=== PATIENT | male | born 1985 | race Hispanic/Latino ===

== ENCOUNTER 2020-01-22 09:24 | Emergency (ER) | payer SELFPAY ==
--- NOTE | 2020-01-22 10:22 | RAD REPORT ---
EXAM DESCRIPTION: CT - Head Brain Wo Cont - 01/22/2020 9:58 am CLINICAL HISTORY: Numbness/Macdonald's palsy COMPARISON: 2015 TECHNIQUE: Computed axial tomography of the head was obtained. IV contrast was not requested. All CT scans are performed using dose optimization technique as appropriate and may include automated exposure control or mA/KV adjustment according to patient size. FINDINGS: An intracranial bleed is not seen . The ventricles are normal in caliber. No extra-axial fluid collection is noted. Fluid within the sinuses/ mastoids is not seen. IMPRESSION: No acute intracranial abnormality is seen. If patient's symptoms persist MRI of the bra in would be recommended.
--- NOTE | 2020-01-22 10:51 | EDPHYS ---
Physician Documentation [facility] Name: Manuel Winn Age: 34 yrs Sex: Male : 1985 Arrival Date: 01/22/2020 Time: 09:25 Bed 14 Private MD: ED Physician Booker Trinidad HPI: 01/22 10:37 This 34 yrs old Male presents to ER via Ambulatory with complaints of Right pm1 Facial Droop. 10:37 The patient presents to the emergency department with right sided facial droop. Onset: pm1 The symptoms/episode began/occurred yesterday, at 14:00. Context: occurred at home, occurred while the patient was getting up from bed. Associated signs and symptoms: Pertinent negatives: altered mental status, dizziness, fever, headache, nausea, weakness. Severity of symptoms: in the emergency department the symptoms are unchanged Pain is currently a 0 / 10. 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 The patient has not recently seen a physician. 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 - Coronavirus screen:: The patient has NOT traveled to [place] in the past 14 days. The patient has NOT had contact with known/suspected case of Coronavirus? Proceed with normal triage procedures. - Social history:: Smoking status: Patient denies any tobacco usage or history of. - Ebola Screening: : No symptoms or risks identified at this time. ROS: 10:37 Constitutional: Negative for fever, chills, and weight loss. pm1 10:37 ENT: Negative for injury, pain, and discharge, Neck: Negative for injury, pain, and swelling, Cardiovascular: Negative for chest pain, palpitations, and edema, Respiratory: Negative for shortness of breath, cough, wheezing, and pleuritic chest pain, Abdomen/GI: Negative for abdominal pain, nausea, vomiting, diarrhea, and constipation, Back: Negative for injury and pain, MS/Extremity: Negative for injury and deformity, Skin: Negative for injury, rash, and discoloration. 10:37 Eyes: Positive for poor eyelid closure left side, Negative for blurry vision, discharge, pain, vision loss, visual disturbance. 10:37 Neuro: Positive for weakness, of the left side of head, Negative for altered mental status, dizziness, numbness, tingling. Exam: 10:37 Constitutional: This is a well developed, well nourished patient who is awake, alert, pm1 and in no acute distress. Head/Face: Normocephalic, atraumatic. 10:37 ENT: Nares patent. No nasal discharge, no septal abnormalities noted. Tympanic membranes are normal and external auditory canals are clear. Oropharynx with no redness, swelling, or masses, exudates, or evidence of obstruction, uvula midline. Mucous membranes moist. Neck: Trachea midline, no thyromegaly or masses palpated, and no cervical lymphadenopathy. Supple, full range of motion without nuchal rigidity, or vertebral point tenderness. No Meningismus. Chest/axilla: Normal chest wall appearance and motion. Nontender with no deformity. No lesions are appreciated. Cardiovascular: Regular rate and rhythm with a normal S1 and S2. No gallops, murmurs, or rubs. Normal PMI, no JVD. No pulse deficits. Respiratory: Lungs have equal breath sounds bilaterally, clear to auscultation and percussion. No rales, rhonchi or wheezes noted. No increased work of breathing, no retractions or nasal flaring. Abdomen/GI: Soft, non-tender, with normal bowel sounds. No distension or tympany. No guarding or rebound. No evidence of tenderness throughout. Back: No spinal tenderness. No costovertebral tenderness. Full range of motion. Skin: Warm, dry with normal turgor. Normal color with no rashes, no lesions, and no evidence of cellulitis. MS/ Extremity: Pulses equal, no cyanosis. Neurovascular intact. Full, normal range of motion. 10:37 Eyes: Periorbital structures: appear normal, Pupils: no acute changes, Extraocular movements: no acute changes, Conjunctiva: normal, Lids and lashes: poor eyelid closure left side. Examination of the other eye reveals no obvious gross abnormality. 10:37 Neuro: Orientation: is normal, Mentation: is normal, Cranial nerves: flattening of forehead and nasolabial fold on the left side; when patient raises eyebrows, forehead remains flat; when patient smiles, distortion and lateralization to the right side, Cerebellar function: normal finger to nose testing, Motor: is normal, moves all fours, strength is normal, strength is 5/5 in all extremities, Sensation: is normal, no obvious gross deficits, Gait: is steady, at a normal pace, without difficulty. Vital Signs: 09:34 BP 198 / 115; Pulse 100; Resp 16; Temp 98.2; Pulse Ox 100% on R/A; Weight 154.22 kg; hb Height 6 ft. 1 in. (185.42 cm); Pain 0/10; 10:39 BP 204 / 113; Pulse 98; Resp 20; Temp 98.4; Pulse Ox 100% on R/A; Pain 5/10; em1 11:10 BP 187 / 101; Pulse 97; Resp 18; Temp 98.0; Pulse Ox 99% on R/A; ph 09:34 Body Mass Index 44.86 (154.22 kg, 185.42 cm) hb NIH Stroke Scale Scores: 10:45 NIHSS Score: 2 ph MDM: 10:37 Patient medically screened. pm1 10:49 Data reviewed: vital signs. Data interpreted: Pulse oximetry: on room air is 100 %. pm1 Interpretation: normal. Counseling: I had a detailed discussion with the patient and/or guardian regarding: the historical points, exam findings, and any diagnostic results supporting the discharge/admit diagnosis, the need for outpatient follow up, a neurologist, to return to the emergency department if symptoms worsen or persist or if there are any questions or concerns that arise at home. 01/22 09:37 Order name: Head Brain Wo Cont CT; Complete Time: 10:37 hb Administered Medications: 11:00 Drug: Decadron 10 mg Route: IM; Site: right deltoid; ph 11:11 Follow up: Response: No adverse reaction ph Disposition: 13:00 Co-signature as Attending Physician, Booker Trinidad MD I agree with the assessment and kdr plan of care. Disposition: 01/22/20 10:50 Discharged to Home. Impression: Macdonald's palsy. - Condition is Stable. - Discharge Instructions: Macdonald Palsy, Adult. - Prescriptions for prednisone 10 mg Oral tablet - take 1 tablet by ORAL route once daily for 10 days Take 6 tablets once daily for 5 days, then take 4 tablets once daily for 2 days, then take 2 tablets once daily for 2 days, then take 1 tablet once daily for 1 day. Ignore "take 1 tablet by ORAL route once daily for 10 days"; 43 tablet. Valtrex 1 g Oral Tablet - take 1 tablet by ORAL route every 8 hours for 5 days; 15 tablet. - Family Work Release, Medication Reconciliation Form, Thank You Letter, Antibiotic Education, Prescription Opioid Use form. - Follow up: Emergency Department; When: As needed; Reason: Worsening of condition. Follow up: Rahul Saunders MD; When: 2 - 3 days; Reason: Recheck today's complaints, Continuance of care, Re-evaluation by your physician. - Problem is new. - Symptoms have improved. NIH Stroke Scale - NIH Stroke Score Date: 01/22/2020 Time: 10:45 Total Score = 2 1a. Level of Consciousness (LOC) - 0(Alert) 1b. Level of Consciousness (LOC) (Year \\T\\ Age) - 0(Both) 1c. LOC Commands (Open \\T\\ Closes Eyes/Field Sales Engineer) - 0(Both) 2. Best Gaze (Lateral Gaze Paresis) - 0(Normal) 3. Visual Field Loss - 0(No visual loss) 4. Facial Palsy - 2(Partial paralysis) 5a. Left Arm: Motor (10-second hold) - 0(No drift) 5b. Right Arm: Motor (10-second hold) - 0(No drift) 6a. Left Leg: Motor (5-second hold - always test supine) - 0(No drift) 6b. Right Leg: Motor (5-second hold - always test supine) - 0(No drift) 7. Limb Ataxia (finger/nose \\T\\ heel/villalpando - test with eyes open) - 0(Absent) 8. Sensory Loss (pinprick arms/legs/face) - 0(Normal) 9. Best Language: Aphasia (description/naming/reading) - 0(No aphasia) 10. Dysarthria (speech clarity - read or repeat words) - 0(Normal) 11. Extinction and Inattention (visual/tactile/auditory/spatial/personal) - 0(No abnormality) Initials: ph Signatures: Dispatcher [employer] EDBooker Gamez MD MD [facility] Mervat Kern RN RN ph Colt Bills, MACRINA LINE INSTALLATION SUPERVISOR pm1 Thompson, Sydney, RN RN hb Corrections: (The following items were deleted from the chart) 11:11 10:50 01/22/2020 10:50 Discharged to Home. Impression: Macdonald's palsy. Condition hb is Stable. Forms are Medication Reconciliation Form, Thank You Letter, Antibiotic Education, Prescription Opioid Use. Follow up: Emergency Department; When: As needed; Reason: Worsening of condition. Follow up: Rahul Saunders; When: 2 - 3 days; Reason: Recheck today's complaints, Continuance of care, Re-evaluation by your physician. Problem is new. Symptoms have improved. pm1
--- NOTE | 2020-01-22 10:51 | ER ---
Nurse's Notes [facility] Name: Manuel Winn Age: 34 yrs Sex: Male : 1985 Arrival Date: 01/22/2020 Time: 09:25 Bed 14 Private MD: Diagnosis: Macdonald's palsy Presentation: 01/22 09:34 Presenting complaint: Left sided facial droop upon waking yesterday at 1400, last known hb normal yesterday at 0800. VAN NEGATIVE. Transition of care: patient was not received from another setting of care. Risk Assessment: Do you want to hurt yourself or someone else? Patient reports no desire to harm self or others. Care prior to arrival: None. 09:34 Method Of Arrival: Ambulatory hb 09:34 Acuity: DORA 3 hb 10:45 No acute neurological deficit is noted. Pre-hospital glucose is not applicable to this ph patient. Onset of symptoms was January 21, 2020. Initial Sepsis Screen: Does the patient meet any 2 criteria? No. Patient's initial sepsis screen is negative. Does the patient have a suspected source of infection? No. Patient's initial sepsis screen is negative. 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 - Coronavirus screen:: The patient has NOT traveled to [place] in the past 14 days. The patient has NOT had contact with known/suspected case of Coronavirus? Proceed with normal triage procedures. - Social history:: Smoking status: Patient denies any tobacco usage or history of. - Ebola Screening: : No symptoms or risks identified at this time. Screenin:37 Abuse screen: Denies threats or abuse. Denies injuries from another. Nutritional ph screening: No deficits noted. Tuberculosis screening: No symptoms or risk factors identified. VAN Screening: Arm Drift: Patient shows no arm weakness. Patient is VAN negative. Fall Risk None identified. Assessment: 10:43 Reassessment: ERP at bedside to speak w/ pt. ph 10:45 VAN Scoring: Arm Drift: Patients demonstrates NO arm weakness. Patient is VAN Negative. ph Patient has been NPO before screening. The patient is alert, and able to follow commands. The patient does not exhibit slurred or garbled speech. The patient is not exhibiting difficulty speaking. The patient does not exhibit difficulty understanding words. The patient is able to swallow own secretions with no drooling or need for suction. Patient tolerated one teaspoon of water. No drooling, immediate coughing, gurgling, or clearing of the throat was noted. The patient tolerated 90mL of water. No drooling, immediate coughing, gurgling, or clearing of the throat was noted. The patient passed the bedside swallow screening. Oral medications may be given as ordered. Contact Physician for further diet orders. Provider notified of bedside swallow screening results: Colt Bills LAUNDRY MARKER SUPERVISOR. T-PA (Activase) Screening: Contraindications: Other: Macdonald's Palsy. General: Appears in no apparent distress. comfortable, obese, Behavior is calm, cooperative, appropriate for age, Denies fever, feeling ill. Pain: Complains of pain in left ear. Neuro: Level of Consciousness is awake, alert, obeys commands, Oriented to person, place, time, situation, Embedded Systems Software Developer are equal bilaterally Moves all extremities. Gait is steady, Speech is normal, Facial droop on left, Pupils are PERRLA, Intact. Cardiovascular: Capillary refill < 3 seconds in bilateral fingers Patient's skin is warm and dry. Respiratory: Airway is patent Respiratory effort is even, unlabored, Respiratory pattern is regular, symmetrical. Derm: Skin is intact, is healthy with good turgor, Skin is pink, warm \T\ dry. Musculoskeletal: Circulation, motion, and sensation intact. Range of motion: intact in all extremities. Vital Signs: 09:34 BP 198 / 115; Pulse 100; Resp 16; Temp 98.2; Pulse Ox 100% on R/A; Weight 154.22 kg; hb Height 6 ft. 1 in. (185.42 cm); Pain 0/10; 10:39 BP 204 / 113; Pulse 98; Resp 20; Temp 98.4; Pulse Ox 100% on R/A; Pain 5/10; em1 11:10 BP 187 / 101; Pulse 97; Resp 18; Temp 98.0; Pulse Ox 99% on R/A; ph 09:34 Body Mass Index 44.86 (154.22 kg, 185.42 cm) hb NIH Stroke Scale Scores: 10:45 NIHSS Score: 2 ph ED Course: 09:25 Patient arrived in ED. as 09:34 Triage completed. hb 09:34 Arm band placed on. hb 10:01 Head Brain Wo Cont CT In Process Unspecified. EDMS 10:36 Mervat Kern, RN is Primary Nurse. ph 10:37 Colt Bills, MACRINA is PHCP. pm1 10:37 Booker Trinidad MD is Attending Physician. pm1 10:45 Patient has correct armband on for positive identification. Bed in low position. Call ph light in reach. Side rails up X 1. Pulse ox on. NIBP on. 10:49 Rahul Saunders MD is Referral Physician. pm1 10:50 No provider procedures requiring assistance completed. Patient did not have IV access ph during this emergency room visit. Administered Medications: 11:00 Drug: Decadron 10 mg Route: IM; Site: right deltoid; ph 11:11 Follow up: Response: No adverse reaction ph Outcome: 10:50 Discharge ordered by . pm1 11:11 Patient left the ED. hb 11:11 Discharged to home ambulatory, with significant other. ph 11:11 Condition: good 11:11 Discharge instructions given to patient, Instructed on discharge instructions, follow up and referral plans. medication usage, Demonstrated understanding of instructions, follow-up care, medications, Prescriptions given X 2. NIH Stroke Scale - NIH Stroke Score Date: 01/22/2020 Time: 10:45 Total Score = 2 1a. Level of Consciousness (LOC) - 0(Alert) 1b. Level of Consciousness (LOC) (Year \T\ Age) - 0(Both) 1c. LOC Commands (Open \T\ Closes Eyes/Transfer Station Attendant) - 0(Both) 2. Best Gaze (Lateral Gaze Paresis) - 0(Normal) 3. Visual Field Loss - 0(No visual loss) 4. Facial Palsy - 2(Partial paralysis) 5a. Left Arm: Motor (10-second hold) - 0(No drift) 5b. Right Arm: Motor (10-second hold) - 0(No drift) 6a. Left Leg: Motor (5-second hold - always test supine) - 0(No drift) 6b. Right Leg: Motor (5-second hold - always test supine) - 0(No drift) 7. Limb Ataxia (finger/nose \T\ heel/villalpando - test with eyes open) - 0(Absent) 8. Sensory Loss (pinprick arms/legs/face) - 0(Normal) 9. Best Language: Aphasia (description/naming/reading) - 0(No aphasia) 10. Dysarthria (speech clarity - read or repeat words) - 0(Normal) 11. Extinction and Inattention (visual/tactile/auditory/spatial/personal) - 0(No abnormality) Initials: ph Signatures: Dispatcher [employer] Ivana Robles Eric em1 Mervat Kern, SHANNON RN ph Colt Bills, MACRINA LAUNDRY MARKER SUPERVISOR pm1 Sydney Thompson RN RN hb
[2020-01-22] MEDS ORDERED: dexAMETHasone 4 MG/ML VIAL ONE (11:01)
[2020-01-22 11:17] VITALS: O2SAT 100
[2020-01-22 11:18] VITALS: BP 204/113; TEMP 98.4
== END 2020-01-22 11:11 | disposition home or self-care (01) ==
LOC: ER 09:24
DX: G51.0 Bell's palsy (principal)
CPT/HCPCS: 70450; 96372; 99284

== ENCOUNTER 2020-04-21 02:18 | Inpatient (IN) | payer SELFPAY ==
[2020-04-21] MEDS ORDERED: KETOROLAC 30 MG/ML INJ ONE ×2 (02:43→15:50)
[2020-04-21] MEDS ORDERED: CLINDAMYCIN 600MG/D5W 600 MG/50 ML BAG IV ONE (02:44)
[2020-04-21 03:32] LABS: Absolute Lymphocytes (CBC) 2.7 K/uL (0.7-4.9); Basophils % 0.7 % (0-1.3); Hematocrit 46.7 % (39.6-49.0); Lymphocytes % 22.4 % (15.3-44.8); MPV 11.2 fL (7.6-11.3); RBC Red Blood Cell Count 5.48 M/uL (4.33-5.43)
[2020-04-21 03:45] LABS: ALT/SGPT 41 U/L (12-78); AST/SGOT 19 U/L (15-37); Albumin 3.6 g/dL (3.4-5.0); Alkaline Phosphatase 134 U/L (45-117); BUN Blood Urea Nitrogen 13 mg/dL (7-18); Bicarbonate 26 mmol/L (21-32); Bilirubin Total 0.3 mg/dL (0.2-1.0); Glucose Level 277 mg/dL (74-106); Potassium 3.8 mmol/L (3.5-5.1); Sodium Level 137 mmol/L (136-145)
[2020-04-21] MEDS ORDERED: PIPER/TAZO/NS 3.375gm 3.375 GM/100 ML BAG ONE (05:49)
--- NOTE | 2020-04-21 05:52 | ER ---
Nurse's Notes [facility] Name: Manuel Winn Age: 34 yrs Sex: Male : 1985 Arrival Date: 04/21/2020 Time: 02:20 Bed 7 Private MD: Diagnosis: Cutaneous abscess of abdominal wall Presentation: 04/21 02:25 Chief complaint: Patient states: redness and drainage from belly button, denies sg N/V/D/Fever at home. Coronavirus screen: Proceed with normal triage. Ebola Screen: Patient negative for fever greater than or equal to 101.5 degrees Fahrenheit, and additional compatible Ebola Virus Disease symptoms Patient denies exposure to infectious person. Patient denies travel to an Ebola-affected area in the 21 days before illness onset. No symptoms or risks identified at this time. Initial Sepsis Screen: Does the patient meet any 2 criteria? No. Patient's initial sepsis screen is negative. Does the patient have a suspected source of infection? Yes: Skin breakdown/wound. Risk Assessment: Do you want to hurt yourself or someone else? Patient reports no desire to harm self or others. Onset of symptoms was April 21, 2020. Care prior to arrival: None. Transition of care: patient was not received from another setting of care. 02:25 Method Of Arrival: Ambulatory sg 02:25 Acuity: DORA 3 sg Historical: - Allergies: 02:26 No Known Allergies; sg - PMHx: 02:26 Macdonald's Palsy; sg - PSHx: 02:26 None; sg - Immunization history:: Adult Immunizations up to date. - Social history:: Smoking status: Patient denies any tobacco usage or history of. Screenin:32 Abuse screen: Denies threats or abuse. Nutritional screening: No deficits noted. ea Tuberculosis screening: No symptoms or risk factors identified. Fall Risk None identified. Assessment: 03:04 General: Appears in no apparent distress. Behavior is calm, cooperative, appropriate ea for age. Pain: Complains of pain in umbilical area. Neuro: Level of Consciousness is awake, alert, obeys commands, Oriented to person, place, time, situation. Cardiovascular: Patient's skin is warm and dry. Respiratory: Airway is patent Respiratory effort is even, unlabored, Respiratory pattern is regular, symmetrical. Derm: Reports drainage from belly button. 04:10 Reassessment: Patient and/or family updated on plan of care and expected duration. Pain ea level reassessed. Patient is alert, oriented x 3, equal unlabored respirations, skin warm/dry/pink. Pt taken to CT. 05:11 Reassessment: Patient and/or family updated on plan of care and expected duration. Pain ea level reassessed. Patient is alert, oriented x 3, equal unlabored respirations, skin warm/dry/pink. Awaiting on CT results. 06:36 Reassessment: pharmacy on phone inquiring about Zosyn order for admission, requesting sg clarification for q 6 zosyn or the extended infusion, notified, v/o received to report to pharmacy that the extended infusion is ordered, pharmacy stated understanding. 07:08 General: Appears in no apparent distress. comfortable, Behavior is calm, cooperative. rb1 Pain: Denies pain. Neuro: Level of Consciousness is awake, alert, obeys commands, Oriented to person, place, time, situation. Cardiovascular: Capillary refill < 3 seconds. Respiratory: Airway is patent Respiratory effort is even, unlabored, Respiratory pattern is regular, symmetrical. Derm: Skin is pink, warm \T\ dry. Derm: Small amount of purulent drainage noted in the umbilical area. 08:00 Reassessment: Patient is alert, oriented x 3, equal unlabored respirations, skin aa5 warm/dry/pink. Vital Signs: 02:33 BP 216 / 126; Pulse 108; Resp 18; Temp 98.7; Pulse Ox 97% on R/A; Weight 156.94 kg; ea Height 6 ft. 1 in. (185.42 cm); 03:56 BP 180 / 104; Pulse 98; Resp 18; Pulse Ox 98% ; ea 04:03 BP 169 / 91; Pulse 94; Resp 18; Pulse Ox 99% on R/A; ea 05:57 BP 157 / 73; Pulse 78; Resp 18; Pulse Ox 97% on R/A; ea 06:07 BP 145 / 87; Pulse 82; Resp 18; Pulse Ox 97% on R/A; ea 07:07 BP 185 / 99; Pulse 95; Resp 19; Pulse Ox 98% on R/A; Pain 0/10; rb1 02:33 Body Mass Index 45.65 (156.94 kg, 185.42 cm) ea ED Course: 02:20 Patient arrived in ED. ds1 02:23 Rikki Sunshine MD is Attending Physician. tw4 02:26 Triage completed. sg 02:26 Arm band placed on. sg 02:33 Patient has correct armband on for positive identification. Bed in low position. Call ea light in reach. Side rails up X2. 03:00 Missed attempt(s): 20 gauge in right in left antecubital area. Bleeding controlled, ds4 band aid applied, catheter tip intact. 03:04 Jaleesa Carrasco RN is Primary Nurse. ea 03:10 Inserted saline lock: 20 gauge in right antecubital area, using aseptic technique. ea Blood collected. 04:32 CT Abd/Pelvis - IV Contrast Only In Process Unspecified. EDNV 05:51 Preston Wick MD is Hospitalizing Provider. tw4 06:50 No provider procedures requiring assistance completed. Patient admitted, IV remains in ea place. Administered Medications: 03:08 Drug: TORadol 30 mg Route: IVP; Site: right antecubital; ea 03:30 Follow up: Response: No adverse reaction; Pain is decreased ea 03:17 Drug: Cleocin 600 mg Route: IVPB; Infused Over: 30 mins; Site: right antecubital; ea 03:40 Follow up: Response: No adverse reaction; IV Status: Completed infusion; IV Intake: 50mlea 05:58 Drug: Zosyn 3.375 grams Route: IVPB; Infused Over: 60 mins; Site: right antecubital; ea 06:31 Follow up: Response: No adverse reaction; IV Status: Completed infusion; IV Intake: jd3 100ml Intake: 03:40 IV: 50ml; Total: 50ml. ea 06:31 IV: 100ml; Total: 150ml. jd3 Outcome: 05:51 Decision to Hospitalize by Provider. tw4 06:50 Instructed on the need for admit, Demonstrated understanding of instructions. ea 08:00 Admitted to Med/surg accompanied by tech, via wheelchair, with chart, Report called to cinthia Julien RN 08:00 Condition: stable 08:05 Patient left the ED. cinthia Signatures: Dispatcher [employer] EDJose L Abbott RN RN sg Sanford, Demi ds1 Edwina Roper RN RN aa5 Swanson, Donovan ds4 Sri Dodson RN RN Jaleesa Richards RN RN ea Davies, Jonathon, RN RN jd3 Wadley, Terrence, MD MD tw4 Corrections: (The following items were deleted from the chart) 03:30 02:25 Acuity: DORA 4 sg sg 03:51 02:33 BP 216 / 126; Pulse 108bpm; Resp 97bpm; Pulse Ox 97% RA; Temp 98.7F; 156.94 kg; ea Height 6 ft. 1 in.; BMI: 45.6; ea
--- NOTE | 2020-04-21 05:52 | EDPHYS ---
Physician Documentation [facility] Name: Manuel Winn Age: 34 yrs Sex: Male : 1985 Arrival Date: 04/21/2020 Time: 02:20 Bed 7 Private MD: ED Physician iRkki Sunshine HPI: 04/21 04:23 This 34 yrs old Male presents to ER via Ambulatory with complaints of Belly tw4 Button Infection/Leakage. 04:23 The patient presents with cellulitis of the umbilical area, the patient presents with a tw4 swollen area of the umbilical area. Description: The affected area is moderate sized, well demarcated, draining, erythematous. Onset: The symptoms/episode began/occurred 4 day(s) ago. Severity of symptoms: At their worst the symptoms were moderate, in the emergency department the symptoms are unchanged. The patient has not experienced similar symptoms in the past. 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 - Social history:: Smoking status: Patient denies any tobacco usage or history of. ROS: 04:23 Constitutional: Negative for fever, chills, and weight loss, Cardiovascular: Negative tw4 for chest pain, palpitations, and edema, Respiratory: Negative for shortness of breath, cough, wheezing, and pleuritic chest pain, Abdomen/GI: Negative for abdominal pain, nausea, vomiting, diarrhea, and constipation, Back: Negative for injury and pain, MS/Extremity: Negative for injury and deformity. 04:23 Skin: Positive for erythema, swelling. Exam: 04:23 Constitutional: This is a well developed, well nourished patient who is awake, alert, tw4 and in no acute distress. Head/Face: Normocephalic, atraumatic. Chest/axilla: Normal chest wall appearance and motion. Nontender with no deformity. No lesions are appreciated. Cardiovascular: Regular rate and rhythm with a normal S1 and S2. No gallops, murmurs, or rubs. Normal PMI, no JVD. No pulse deficits. Respiratory: Lungs have equal breath sounds bilaterally, clear to auscultation and percussion. No rales, rhonchi or wheezes noted. No increased work of breathing, no retractions or nasal flaring. Abdomen/GI: Soft, non-tender, with normal bowel sounds. No distension or tympany. No guarding or rebound. No evidence of tenderness throughout. MS/ Extremity: Pulses equal, no cyanosis. Neurovascular intact. Full, normal range of motion. Neuro: Awake and alert, GCS 15, oriented to person, place, time, and situation. Cranial nerves II-XII grossly intact. Motor strength 5/5 in all extremities. Sensory grossly intact. Cerebellar exam normal. Normal gait. 04:23 Skin: abscess, that is moderate sized, with drainage, with fluctuance, cellulitis, that is moderate, well demarcated. Vital Signs: 02:33 BP 216 / 126; Pulse 108; Resp 18; Temp 98.7; Pulse Ox 97% on R/A; Weight 156.94 kg; ea Height 6 ft. 1 in. (185.42 cm); 03:56 BP 180 / 104; Pulse 98; Resp 18; Pulse Ox 98% ; ea 04:03 BP 169 / 91; Pulse 94; Resp 18; Pulse Ox 99% on R/A; ea 05:57 BP 157 / 73; Pulse 78; Resp 18; Pulse Ox 97% on R/A; ea 06:07 BP 145 / 87; Pulse 82; Resp 18; Pulse Ox 97% on R/A; ea 07:07 BP 185 / 99; Pulse 95; Resp 19; Pulse Ox 98% on R/A; Pain 0/10; rb1 02:33 Body Mass Index 45.65 (156.94 kg, 185.42 cm) ea MDM: 02:23 Patient medically screened. tw4 07:08 Differential diagnosis: abscess, cellulitis. Data reviewed: vital signs, nurses notes. tw4 Data reviewed: lab test result(s), CBC, electrolytes, radiologic studies, CT scan. Data interpreted: Pulse oximetry: Interpretation: normal. Counseling: I had a detailed discussion with the patient and/or guardian regarding: the historical points, exam findings, and any diagnostic results supporting the discharge/admit diagnosis, lab results, radiology results. Medication response: Toradol relieved patient's pain. The symptoms have resolved. Physician consultation: Preston Wick MD regarding admission, to the medical/surgical unit. patient's condition, and will see patient in inpatient room. Physician consultation: was contacted at 05:38. Admission orders: after a detailed discussion of the patient's condition and case, the admit orders are written by me. ED course: DW Dr Wick will admit pt for management of abscess. 04/21 02:33 Order name: CBC with Diff; Complete Time: 03:54 tw4 04/21 03:54 Interpretation: Normal except: WBC 11.9; NEUT A 8.1. tw4 04/21 02:33 Order name: CMP; Complete Time: 03:54 tw4 04/21 03:54 Interpretation: Normal except: GLUC 277. tw4 04/21 02:33 Order name: CT Abd/Pelvis - IV Contrast Only tw4 04/21 06:01 Order name: CONS Pharmacy Consult EDNE 04/21 06:01 Order name: NPO EDNE Administered Medications: 03:08 Drug: TORadol 30 mg Route: IVP; Site: right antecubital; ea 03:30 Follow up: Response: No adverse reaction; Pain is decreased ea 03:17 Drug: Cleocin 600 mg Route: IVPB; Infused Over: 30 mins; Site: right antecubital; ea 03:40 Follow up: Response: No adverse reaction; IV Status: Completed infusion; IV Intake: 50mlea 05:58 Drug: Zosyn 3.375 grams Route: IVPB; Infused Over: 60 mins; Site: right antecubital; ea 06:31 Follow up: Response: No adverse reaction; IV Status: Completed infusion; IV Intake: jd3 100ml Disposition: 04/21/20 05:51 Hospitalization ordered by Preston Wick for Inpatient Admission. Preliminary diagnosis is Cutaneous abscess of abdominal wall. - Bed requested for Telemetry/MedSurg (Inpatient). - Status is Inpatient Admission. aa5 - Condition is Stable. - Problem is new. - Symptoms are unchanged. Signatures: Dispatcher [employer] EDNE Cherelle Dias RN RN kl Gay, Steven RN Edwina Thrasher RN RN aa5 Jaleesa Carrasco RN RN ea Wadley, Terrence, MD MD tw4 José Luis Barriga RN jd3 Corrections: (The following items were deleted from the chart) 06:18 05:51 Hospitalization Ordered by Preston Wick MD for Inpatient Admission. Preliminary kl diagnosis is Cutaneous abscess of abdominal wall. Bed requested for Telemetry/MedSurg (Inpatient). Status is Inpatient Admission. Condition is Stable. Problem is new. Symptoms are unchanged. tw4 08:05 06:18 04/21/2020 05:51 Hospitalization Ordered by Preston Wick MD for Inpatient aa5 Admission. Preliminary diagnosis is Cutaneous abscess of abdominal wall. Bed requested for Telemetry/MedSurg (Inpatient). Status is Inpatient Admission. Condition is Stable. Problem is new. Symptoms are unchanged. kl
[2020-04-21] MEDS ORDERED: MORPHINE 2 MG/ML SYR IV PRN (05:59)
[2020-04-21] MEDS ORDERED: ONDANSETRON 4 MG/2 ML VIAL IV PRN (05:59)
--- NOTE | 2020-04-21 09:33 | RAD REPORT ---
EXAM DESCRIPTION: CT - Abdomen Pelvis W Contrast - 04/21/2020 6:10 am CLINICAL HISTORY: The patient is 34 years old and is Male; ABD PAIN TECHNIQUE: Axial computed tomography images of the abdomen and pelvis with intravenous contrast. S agittal and coronal reformatted images were created and reviewed. This CT exam was performed using one or more of the following dose reduction techniques: automated exposure control, adjustment of t he mA and/or kV according to patient size, and/or use of iterative reconstruction technique. COMPARISON: No relevant prior studies available. FINDINGS: LUNG BASES: Unremarkable. No mass. No consolidation. ABDOMEN: LIVER: The liver is enlarged and mildly fatty. GALLBLADDER AND BILE DUCTS: No calcified stones. No ductal dilation. PANCREAS: No ductal dilation. No mass. SPLEEN: Unremarkable. ADRENALS: Unremarkable. No mass. KIDNEYS AND URETERS: Unremarkable. The kidneys enhance symmetrically. No obstructing renal or ur eteral calculus is seen. No hydronephrosis or hydroureter. No perinephric fluid or stranding. STOMACH AND BOWEL: The stomach is minimally fluid filled. The small bowel is normal in caliber. A moderate amount stool is present throughout colon. There is no mucosal thickening or evidence of viktoriya wel obstruction. PELVIS: APPENDIX: The appendix is normal in caliber without surrounding inflammation. BLADDER: The bladder is well distended. No mass. REPRODUCTIVE: Unremarkable as visualized. ABDOMEN and PELVIS: INTRAPERITONEAL SPACE: Unremarkable. No free air. No significant fluid collection. BONES/JOINTS: No acute fracture. SOFT TISSUES: Extensive skin thickening at the level of the umbilicus is present. A 3.6 x 2.3 cm low attenuating collection within the umbilicus is noted. VASCULATURE: Unremarkable. No abdominal aortic aneurysm. LYMPH NODES: Unremarkable. No enlarged lymph nodes. IMPRESSION: Findings suggestive of cellulitis with associated abscess formation at the level of the umbilicus. No findings to suggest a urachal remnant. Electronically signed by: Laureen Rios MD 04/21/2020 5:18 AM CDT Due to temporary technical issues with the PACS/Fluency reporting system, reports are being signed by the in house radiologist as a courtesy to ensure prompt reporting. The interpreting radiologist is f ully responsible for the content of the report.
[2020-04-21 09:55] VITALS: BMI 45.6
[2020-04-21] MEDS: PIPER/TAZO/NS 3.375gm 3.375 GM/100 ML BAG IVPB SCH ×2 (10:26→18:33)
[2020-04-21] MEDS: NA CHLORIDE 0.9% 1,000 ML IV SCH ×3 (10:26→20:54)
--- NOTE | 2020-04-21 14:10 | P.HP ---
Date of Service: 04/21/20 PC: This 34-year-old male presents to the emergency room with severe periumbilical pain for diagnosis and treatment. 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 Today notices a emboli kiss was painful and red. Feels like a little bubble as they are causing him pain in discomfort. Has surrounding redness as well. PMH: Diabetes, Macdonald's palsy PSHx: Negative SOC: No known allergies SYS REVIEW: No cough, wheeze, shortness of breath. No chest pain or palpitations. Denies any urinary complaints O/E awake alert comfortable at the moment HEENT: Within normal limits Chest: Chest movement equal bilateral ABD: There is redness and erythema at the emboli kiss. It is very painful to the touch. LOCO: Intact DATA: Elevated white cell count, CT scan demonstrates a subcutaneous abscess at the emboli kiss, no evidence of a patent urachus IMPRESSION: Periumbilical abscess PLAN: I will take him the operating room for incision, drainage, sharp debridement of this abscess. The risks of this procedure have been discussed. The possibility of bleeding, infection, recurrence, need for further surgeries and procedures including hernia formation were explained. He understands and wants us to proceed.
[2020-04-21] MEDS ORDERED: propofoL 200 MG/20 ML VIAL IV ONE (14:23)
[2020-04-21] MEDS ORDERED: LIDOCAINE 2% MPF 5 ML VIAL ONE (14:23)
[2020-04-21] MEDS ORDERED: FENTANYL CITR 100 MCG/2 ML ONE ×2 (15:50→16:46)
[2020-04-21] MEDS ORDERED: ONDANSETRON 4 MG/2 ML VIAL ONE ×2 (15:50→17:29)
[2020-04-21] MEDS ORDERED: dexAMETHasone 10 MG/ML VIAL ONE (16:08)
--- NOTE | 2020-04-21 17:05 | P.OP ---
Preoperative diagnosis: Periumbilical abscess Postoperative diagnosis: The same with pilonidal abscess Primary procedure: Incision, drainage, sharp debridement of periumbilical pilonidal abscess Secondary procedure: Closure of small umbilical hernia Estimated blood loss: Less than 10 cc Specimen: Sent for histopathology Operative Technique: The patient brought the operating room and placed supine on the table. After the induction of adequate anesthesia, there the abdomen was prepped with a DuraPrep solution, and draped in usual aseptic manner. Attention was turned towards the emboli kiss. We could see after per gently pressing on this the risks purulent material coming from a hole in the actual emboli kiss itself. A subumbilical incision was made. This brought down through the skin and subcutaneous tissue. We were able see the umbilical stalk. It was noted be markedly thickened and we dissected free from the surrounding area. As we pressed on this old blood an infection came out of it. The umbilical stalk was divided just at the level of the fashion revealing a small umbilical hernia. The sac was now dissected off the posterior portion of the emboli kiss itself. This was sent for histop athology. This was turned back towards the fascia. It was imbricated with 2 0 PDS using approximately 6 interrupted sutures to do so. At this point the skin in the emboli kiss was inspected. There was a central necrotic area that was loosely approximated using 2 0 PDS. This was then tacked down to the fascia. At this point the abdomen is inspected to ensure adequate hemostasis. These skin edges of the subumbilical incision were approximated with yeni. Neosporin was placed into the emboli kiss. Cotton balls were now at around it. Op-site was placed over this area. Using Dallin suction and a needle we were able to compress this and close the hole with a small piece O op-site. At the end of the procedure he was in a stable condition when sent to the recovery room. Needle sponge instrument count were correct. Complications: None Transferred to: Recovery Room Condition: Good
[2020-04-21] MEDS ORDERED: MORPHINE 4 MG/ML SYR IV PRN (17:08)
[2020-04-21] MEDS: HYDROMORPHONE HCL 1 MG/ML INJ ONE ×3 (17:24→17:37)
[2020-04-21] MEDS: HYDROCODONE/APAP 7.5/325 MG TAB PO PRN (20:54)
[2020-04-21 21:51] VITALS: O2SAT 99
[2020-04-22] MEDS: PIPER/TAZO/NS 3.375gm 3.375 GM/100 ML BAG IVPB SCH ×2 (00:09→08:01)
[2020-04-22] MEDS: NA CHLORIDE 0.9% 1,000 ML IV SCH ×2 (00:56→12:00)
[2020-04-22] MEDS: HYDROCODONE/APAP 7.5/325 MG TAB PO PRN ×3 (03:13→11:41)
[2020-04-22 13:49] VITALS: BP 173/99; TEMP 96.8
--- NOTE | 2020-04-22 13:57 | P.PN ---
Date of Service: 04/22/20 S: Patient has no complaints, states that his belly button is just a little bit sore. O: Dressing intact, wounds clean A: Surgically stable P: Discharge home, call my office Saturday appointment. He will remove the dressing on and see me on Saturday. If he has any questions or problems he will returns emergency room, or contact me
== END 2020-04-22 15:33 | disposition home or self-care (01) | DRG 580 ==
LOC: ER 02:18 → ERHOLD 06:36 → 2ND 08:04
PROVIDERS: ADMIT Surgery; ATTEND Surgery
PROC: 0WQF0ZZ Repair Abdominal Wall, Open Approach (ICD-10-PCS; 2020-04-21)
PROC: 0JD80ZZ Extraction of Abdomen Subcutaneous Tissue and Fascia, Open Approach (ICD-10-PCS; 2020-04-21)
PROC: 0J980ZZ Drainage of Abdomen Subcutaneous Tissue and Fascia, Open Approach (ICD-10-PCS; principal; 2020-04-21 12:30)
DX: L02.216 Cutaneous abscess of umbilicus (principal); L05.01 Pilonidal cyst with abscess
CPT/HCPCS: 36415; 74177; 80053; 85025; 88304; 96365; 96367; 96375; 99285; J1100; J1170; J2405; J2543; J2704; J3010; J7030; Q9967

== ENCOUNTER 2021-01-05 20:18 | Emergency (ER) | payer SELFPAY ==
--- NOTE | 2021-01-05 21:35 | RAD REPORT ---
EXAM DESCRIPTION: RAD - Chest Single View - 01/05/2021 9:29 pm CLINICAL HISTORY: Cough;SOB Chest pain. COMPARISON: No comparisons FINDINGS: Portable technique limits examination quality. Interstitial markings are mildly prominent suggesting a viral infection. The heart is normal in size. No displaced fractures.
[2021-01-05 22:20] LABS: Absolute Lymphocytes (CBC) 1.3 K/uL (0.7-4.9); Basophils % 1.1 % (0-1.3); Hematocrit 47.8 % (39.6-49.0); Lymphocytes % 16.9 % (15.3-44.8); MPV 10.5 fL (7.6-11.3); RBC Red Blood Cell Count 5.71 M/uL (4.33-5.43)
[2021-01-05 22:23] LABS: Protime INR 1.17
[2021-01-05] MEDS ORDERED: METHYLPREDNISOLONE 125 MG INJ ONE (22:37)
[2021-01-05] MEDS ORDERED: LABETALOL 20 MG/4ML SYRINGE IV ONE (22:37)
[2021-01-05] MEDS ORDERED: NA CHLORIDE 0.9% 500 ML ONE (22:37)
[2021-01-05 22:59] LABS: ALT/SGPT 32 U/L (12-78); AST/SGOT 21 U/L (15-37); Albumin 3.2 g/dL (3.4-5.0); Alkaline Phosphatase 82 U/L (45-117); BUN Blood Urea Nitrogen 15 mg/dL (7-18); Bicarbonate 24 mmol/L (21-32); Bilirubin Direct 0.1 mg/dL (0-0.2); Bilirubin Total 0.5 mg/dL (0.2-1.0); Ferritin 1125.6 ng/mL (26-388); Glucose Level 279 mg/dL (74-106); Magnesium 2.2 mg/dL (1.8-2.4); NT PRO-BNP 7 pg/mL (<125); Protein, Total 7.7 g/dL (6.4-8.2); Sodium Level 135 mmol/L (136-145); Troponin (Emerg Dept Use Only) < 0.02 ng/mL (0.0-0.045)
[2021-01-06] MEDS ORDERED: ACETAMINOPHEN 500 MG TAB ONE (00:03)
--- NOTE | 2021-01-06 00:26 | ER ---
Nurse's Notes [facility] Name: Manuel Winn Age: 35 yrs Sex: Male : 1985 Arrival Date: 01/05/2021 Time: 20:19 Bed 20 Private MD: Diagnosis: Coronavirus infection, unspecified;Pneumonia due to other specified infectious organisms Presentation: 01/05 20:35 Chief complaint: Patient states: Covid positive last week. SOB for 2 days. + dizziness ll1 at times. + nausea, diarrhea has resolved. Low grade fever. No appetite. Coronavirus screen: Client denies travel out of the [place] in the last 14 days. chills, cough unrelated to allergies, diarrhea, difficulty breathing, fatigue, fever, headache, muscle pain, nausea, runny nose, shaking with chills, shortness of breath, loss of taste or smell, Client presents with at least one sign or symptom that may indicate coronavirus-19. Standard/surgical mask placed on the client. Client reports previous positive COVID test result. Ebola Screen: Patient denies travel to an Ebola-affected area in the 21 days before illness onset. Initial Sepsis Screen: Does the patient meet any 2 criteria? HR > 90 bpm. No. Patient's initial sepsis screen is negative. Does the patient have a suspected source of infection? Yes: Productive cough/pneumonia. Risk Assessment: Do you want to hurt yourself or someone else? Patient reports no desire to harm self or others. Onset of symptoms was December 29, 2020. 20:35 Method Of Arrival: Wheelchair ll1 20:35 Acuity: DORA 2 ll1 Triage Assessment: 01/06 02:07 Respiratory: Onset: The symptoms/episode began/occurred. sf Historical: - Allergies: 01/05 20:35 No Known Allergies; ll1 - PMHx: 20:35 Macdonald's Palsy; Hypertension; ll1 - PSHx: 20:35 belly button sx; ll1 - Immunization history:: Flu vaccine is not up to date. - Social history:: Smoking status: Patient denies any tobacco usage or history of. Assessment: 21:27 General: Appears in no apparent distress. comfortable, obese, Behavior is calm, sf cooperative, appropriate for age, Reports fatigue for >3 days. Pain: Denies pain. Neuro: No deficits noted. Level of Consciousness is awake, alert, obeys commands, Oriented to Appropriate for age. Cardiovascular: Capillary refill < 3 seconds Rhythm is sinus tachycardia. Respiratory: Airway is patent Respiratory effort is even, unlabored, Respiratory pattern is regular, symmetrical, Breath sounds are clear bilaterally. in right upper lobe, left upper lobe, left posterior upper lobe, right posterior upper lobe, left posterior lower lobe, right posterior middle lobe and right posterior lower lobe. GI: Reports diarrhea, resolved. 23:34 Reassessment: Patient and/or family updated on plan of care and expected duration. Pain sf level reassessed. Patient is alert, oriented x 3, equal unlabored respirations, skin warm/dry/pink. Patient states feeling better. Patient states symptoms have improved. 01/06 01:45 Reassessment: Patient appears in no apparent distress at this time. Patient and/or sf family updated on plan of care and expected duration. Pain level reassessed. Patient is alert, oriented x 3, equal unlabored respirations, skin warm/dry/pink. Patient states feeling better. Patient states symptoms have improved. Vital Signs: 01/05 20:35 BP 121 / 72; Pulse 129; Resp 20; Temp 99.0; Pulse Ox 95% on R/A; Weight 152.86 kg; ll1 Height 6 ft. 1 in. (185.42 cm); Pain /; 22:30 BP 128 / 88; Pulse 111; Resp 20; Pulse Ox 96% ; sf 23:30 BP 128 / 77; Pulse 114; Resp 20; Pulse Ox 97% ; sf 23:33 BP 127 / 88 Supine (auto/); Pulse 117 MON; Resp 18 S; Temp 100.7(O); Pulse Ox 96% on sf R/A; 01/06 00:30 BP 131 / 80; Pulse 110; Resp 18; Temp 98.4(O); Pulse Ox 97% ; sf 01:30 BP 133 / 83; Pulse 105; Resp 20; Pulse Ox 96% ; sf 01/05 20:35 Body Mass Index 44.46 (152.86 kg, 185.42 cm) ll1 ED Course: 01/05 20:19 Patient arrived in ED. cf2 20:34 Arm band placed on. ll1 20:38 Triage completed. ll1 20:52 Slava Aguilar PA is PHCP. cp 20:52 Slava Reis MD is Attending Physician. cp 21:21 Jose L Daniel, SHANNON is Primary Nurse. sf 21:29 XRAY Chest (1 view) In Process Unspecified. EDMS 21:30 Placed in gown. Bed in low position. Call light in reach. Side rails up X 1. Cardiac sf monitor on. Pulse ox on. NIBP on. Door closed. Noise minimized. Lights dimmed. 21:50 Missed attempt(s): 20 gauge in right antecubital area. sf 22:00 Inserted saline lock: 20 gauge in left hand, using aseptic technique. sf 01/06 02:01 IV discontinued, intact, bleeding controlled, No redness/swelling at site. Pressure sf dressing applied. Administered Medications: Discontinued: NS 0.9% 500 ml IV at bolus once 01/05 22:20 Drug: NS 0.9% 500 ml Route: IV; Rate: bolus; Site: left hand; sf 23:32 Follow up: Response: No adverse reaction; IV Status: Completed infusion; IV Intake: sf 500ml 22:21 Drug: SOLU-Medrol 125 mg Route: IVP; Site: left hand; sf 23:31 Follow up: Response: No adverse reaction; Marked relief of symptoms sf 23:31 Not Given (not indicated by BP): Labetalol 10 mg IVP once over 2 mins; For SBP greater sf than 140. Hold for HR less than 60, notify provider. 23:48 Drug: Tylenol 1000 mg Route: PO; sf 05 01:10 Follow up: Response: No adverse reaction sf 00:55 Drug: NS 0.9% 500 ml Route: IV; Rate: bolus; Site: left hand; sf 01:00 Follow up: IV Status: Completed infusion; IV Intake: 500ml sf Intake: 01/05 23:32 IV: 500ml; Total: 500ml. sf 02 01:00 IV: 500ml; Total: 1000ml. sf Outcome: 00:26 Discharge ordered by . cp 02:02 Discharged to home ambulatory. sf 02:02 Condition: stable 02:02 Discharge instructions given to patient, Instructed on discharge instructions, follow up and referral plans. medication usage, Demonstrated understanding of instructions, follow-up care, medications, Prescriptions given X 4. 02:08 Patient left the ED. sf Signatures: Dispatcher [employer] EDMS Slava Aguilar PA PA cp Frazier, Celesta cf2 Pepito Dias RN RN ll1 Jose L Daniel RN RN sf Corrections: (The following items were deleted from the chart) 01/05 22:15 21:27 Cardiovascular: Capillary refill < 3 seconds Patient's skin is warm and dry. sf Rhythm is sinus tachycardia sf
--- NOTE | 2021-01-06 00:27 | EDPHYS ---
Physician Documentation [facility] Name: Manuel Winn Age: 35 yrs Sex: Male : 1985 Arrival Date: 01/05/2021 Time: 20:19 Bed 20 Private MD: ED Physician Slava Reis HPI: 01/05 21:35 This 35 yrs old Male presents to ER via Wheelchair with complaints of COVID cp POSITIVE, Breathing Difficulty. 21:35 The patient or guardian reports cough, that is intermittent, with no sputum, difficulty cp breathing. Onset: The symptoms/episode began/occurred 2 day(s) ago. 21:35 Associated signs and symptoms: Pertinent positives: nausea, Pertinent negatives: chest cp pain, fever, vomiting. Severity of symptoms: in the emergency department the symptoms are unchanged despite home interventions. 21:35 Patient reports he tested positive for COVID-19 last week and reports increasing cp shortness of breath over past 2 days. 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 - Social history:: Smoking status: Patient denies any tobacco usage or history of. ROS: 21:45 Constitutional: Negative for body aches, chills, fever, poor PO intake. cp 21:45 Eyes: Negative for injury, pain, redness, and discharge. cp 21:45 ENT: Negative for ear pain, sore throat, difficulty swallowing, difficulty handling secretions. 21:45 Cardiovascular: Negative for chest pain, edema, palpitations. 21:45 Respiratory: Positive for cough, with no reported sputum, shortness of breath, on exertion. Negative for wheezing. 21:45 Abdomen/GI: Negative for abdominal pain, nausea, vomiting, and diarrhea, constipation. 21:45 Back: Negative for pain at rest, pain with movement, radiated pain. 21:45 : Negative for urinary symptoms. 21:45 Neuro: Negative for altered mental status, headache, weakness. 21:45 All other systems are negative. Exam: 21:48 Constitutional: The patient appears in no acute distress, alert, awake, cp non-diaphoretic, non-toxic, well developed, well nourished, obese. 21:48 Head/Face: Normocephalic, atraumatic. cp 21:48 Eyes: Periorbital structures: appear normal, Conjunctiva: normal, no exudate, no injection, Sclera: no appreciated abnormality, Lids and lashes: appear normal, bilaterally. 21:48 ENT: External ear(s): are unremarkable, Nose: is normal, Mouth: Lips: moist, Oral mucosa: pink and intact, moist, Posterior pharynx: Airway: no evidence of obstruction, patent. 21:48 Neck: ROM/movement: is normal, is supple, no meningismus, no nuchal rigidity. 21:48 Chest/axilla: Inspection: normal, Palpation: is normal, no crepitus, no tenderness. 21:48 Cardiovascular: Rate: tachycardic, Rhythm: regular, Edema: is not appreciated, JVD: is not appreciated. 21:48 Respiratory: the patient does not display signs of respiratory distress, Respirations: labored breathing, is not present, intercostal retractions, are absent, shallow respirations, are not present, Breath sounds: bronchial sounds, that are mild, are heard diffusely, decreased breath sounds, are not appreciated, wheezing: is not appreciated. 21:48 Abdomen/GI: Inspection: abdomen appears normal, Palpation: abdomen is soft and non-tender, in all quadrants. 21:48 Back: pain, is absent, ROM is normal. 21:48 Skin: no rash present. 21:48 Neuro: Orientation: to person, place \T\ time. Mentation: is normal. 01/06 01:49 ECG was reviewed by the Attending Physician. cp Vital Signs: 01/05 20:35 BP 121 / 72; Pulse 129; Resp 20; Temp 99.0; Pulse Ox 95% on R/A; Weight 152.86 kg; ll1 Height 6 ft. 1 in. (185.42 cm); Pain 1/10; 22:30 BP 128 / 88; Pulse 111; Resp 20; Pulse Ox 96% ; sf 23:30 BP 128 / 77; Pulse 114; Resp 20; Pulse Ox 97% ; sf 23:33 BP 127 / 88 Supine (auto/); Pulse 117 MON; Resp 18 S; Temp 100.7(O); Pulse Ox 96% on sf R/A; 01/06 00:30 BP 131 / 80; Pulse 110; Resp 18; Temp 98.4(O); Pulse Ox 97% ; sf 01:30 BP 133 / 83; Pulse 105; Resp 20; Pulse Ox 96% ; sf 01/05 20:35 Body Mass Index 44.46 (152.86 kg, 185.42 cm) ll1 MDM: 01/05 20:58 Patient medically screened. [facility] 22:00 Differential diagnosis: bronchitis, flu, pneumonia, respiratory failure, cardiac cp arrythmia, CHF. 01/06 00:25 Data reviewed: vital signs, nurses notes, lab test result(s), EKG, radiologic studies, cp plain films. 00:25 Test interpretation: by ED physician or midlevel provider: ECG, plain radiologic cp studies. Counseling: I had a detailed discussion with the patient and/or guardian regarding: the historical points, exam findings, and any diagnostic results supporting the discharge/admit diagnosis, lab results, radiology results, the need for outpatient follow up, a family practitioner, to return to the emergency department if symptoms worsen or persist or if there are any questions or concerns that arise at home. Response to treatment: the patient's symptoms have markedly improved after treatment. ED course: VSS. Patient appears non-toxic and no signs of respiratory distress. Will discharge to home for continued monitoring. 01/05 21:30 Order name: Basic Metabolic Panel cp 01/05 21:30 Order name: CBC with Diff; Complete Time: 22:56 cp 01/05 22:56 Interpretation: Normal except: RBC 5.71. cp 01/05 21:30 Order name: LFT's; Complete Time: 23:51 cp 01/05 23:53 Interpretation: Normal except: ALB 3.2; GLOB 4.5; A/G 0.7. cp 01/05 21:30 Order name: Magnesium; Complete Time: 23:51 cp 01/05 21:30 Order name: NT PRO-BNP; Complete Time: 23:51 cp / 21:07 Order name: XRAY Chest (1 view); Complete Time: 22:56 cp 01/05 21:30 Order name: Troponin (emerg Dept Use Only); Complete Time: 23:51 cp 01/05 23:53 Interpretation: TROPED < 0.02; Reviewed. cp 01/05 21:30 Order name: CRP; Complete Time: 23:51 cp 02/04 23:52 Interpretation: Abnormal: C-REACTIVE PROT 66.90. cp / 21:30 Order name: Ferritin; Complete Time: 23:51 cp /04 21:31 Order name: Basic Metabolic Panel; Complete Time: 23:51 EDMS 02/04 23:52 Interpretation: Normal except: NA 135; GLUC 279; GFR 88. cp / 21:31 Order name: D-Dimer; Complete Time: 22:56 cp /04 22:14 Order name: Protime (+INR); Complete Time: 22:56 EDMS 02/04 22:57 Interpretation: Abnormal: PT 13.5. cp 02/ 21:30 Order name: EKG; Complete Time: 21:31 cp 01/05 21:30 Order name: Cardiac monitoring; Complete Time: 21:45 cp / 21:30 Order name: EKG - Nurse/Tech; Complete Time: 23:32 cp 01/05 21:30 Order name: IV Saline Lock; Complete Time: 22:18 cp 01/05 21:30 Order name: Labs collected and sent; Complete Time: 22:18 cp 04 21:30 Order name: O2 Per Protocol; Complete Time: 22:18 cp 04 21:30 Order name: O2 Sat Monitoring; Complete Time: 22:18 cp EC:49 Rate is 103 beats/min. Rhythm is regular. LA interval is normal. QRS interval is cp normal. QT interval is normal. T waves are Inverted in leads III, aVF. Interpreted by me. Reviewed by me. Administered Medications: Discontinued: NS 0.9% 500 ml IV at bolus once 01/05 22:20 Drug: NS 0.9% 500 ml Route: IV; Rate: bolus; Site: left hand; sf 23:32 Follow up: Response: No adverse reaction; IV Status: Completed infusion; IV Intake: sf 500ml 22:21 Drug: SOLU-Medrol 125 mg Route: IVP; Site: left hand; sf 23:31 Follow up: Response: No adverse reaction; Marked relief of symptoms sf 23:31 Not Given (not indicated by BP): Labetalol 10 mg IVP once over 2 mins; For SBP greater sf than 140. Hold for HR less than 60, notify provider. 23:48 Drug: Tylenol 1000 mg Route: PO; sf 01/06 01:10 Follow up: Response: No adverse reaction sf 00:55 Drug: NS 0.9% 500 ml Route: IV; Rate: bolus; Site: left hand; sf 01:00 Follow up: IV Status: Completed infusion; IV Intake: 500ml sf Disposition: 05:56 Co-signature as Attending Physician, Slava Reis MD I agree with the assessment and [facility] plan of care. Disposition: 01/06/21 00:26 Discharged to Home. Impression: Coronavirus infection, unspecified, Pneumonia due to other specified infectious organisms. - Condition is Stable. - Discharge Instructions: COVID-19. - Prescriptions for ivermectin 3 mg Oral tablet - take 6 tablet by ORAL route every other day x2 dose; 12 tablet. Zithromax Z- Cristobal 250 mg Oral Tablet - take 1 tablet by ORAL route as directed for 5 days Day 1 - take two (2) tablets one time. Day 2, 3, 4 , 5 take one (1) tablet once daily.; 6 tablet. Prednisone 20 mg Oral Tablet - take 2 tablets by ORAL route once daily for 5 days then 1 tablet daily for 5 days; 15 tablet. Albuterol Sulfate 90 mcg/actuation - inhale 1-2 puff by INHALATION route every 4-6 hours; 1 Inhaler. - Medication Reconciliation Form, Thank You Letter, Antibiotic Education, Prescription Opioid Use form. - Follow up: Private Physician; When: 1 - 2 days; Reason: Recheck today's complaints. - Problem is new. - Symptoms have improved. Signatures: Dispatcher [employer] [facility] Slava Reis MD MD cha Page, Corey, PA PA cp Pepito Dias RN RN [facility] Jose L Daniel RN RN sf Corrections: (The following items were deleted from the chart) 01/05 22:14 21:31 PROTIME (+INR)+[id number].BRZ ordered. [facility] 01/06 02:08 00:26 01/06/2021 00:26 Discharged to Home. Impression: Coronavirus infection, sf unspecified; Pneumonia due to other specified infectious organisms. Condition is Stable. Forms are Medication Reconciliation Form, Thank You Letter, Antibiotic Education, Prescription Opioid Use. Follow up: Private Physician; When: 1 - 2 days; Reason: Recheck today's complaints. Problem is new. Symptoms have improved. cp
[2021-01-06] MEDS ORDERED: NA CHLORIDE 0.9% 500 ML ONE (00:44)
[2021-01-06 02:17] VITALS: TEMP 98.4
[2021-01-06 02:18] VITALS: BP 133/83; O2SAT 96
== END 2021-01-06 02:08 | disposition home or self-care (01) ==
LOC: ER 20:18
DX: U07.1 COVID-19 (principal); J16.8 Pneumonia due to other specified infectious organisms; I10 Essential (primary) hypertension
CPT/HCPCS: 36415; 71045; 80048; 80076; 82728; 83735; 83880; 84484; 85025; 85379; 85610; 86140; 93005; 96361; 96374; 99284; J2930; J7040